=== PATIENT | female | born 1990 | race African-American/Black ===

== ENCOUNTER 2023-06-25 06:37 | Emergency (ER) | payer OTHER ==
[2023-06-25 06:48] VITALS: RESP 18; TEMP 98; BMI 28.3
[2023-06-25] MEDS ORDERED: TETRACAINE/BENZOCAINE/BUTAMBEN 20 GM SPR TP ONE (07:38)
[2023-06-25] MEDS ORDERED: TETRACAINE 0.5% OPHTH SOLN 2 ML BOTTLE ONE (08:22)
[2023-06-25] MEDS ORDERED: BENZOCAINE 20% 57 GM BOTTLE TP ONE (08:23)
[2023-06-25 09:18] VITALS: BP 110/77; PULSE 88
== END 2023-06-25 09:19 | disposition home or self-care (01) ==
LOC: JER 06:37
DX: T17.208A Unspecified foreign body in pharynx causing other injury, initial encounter (principal); R07.0 Pain in throat
CPT/HCPCS: 99282-25

== ENCOUNTER 2023-11-03 08:02 | Inpatient (IN) | payer OTHER ==
[2023-11-03] MEDS ORDERED: ELECTROLYTE-148 SOLN 1,000 ML IV SCH (08:45)
[2023-11-03] MEDS ORDERED: MISOPROSTOL 25 MCG TABLET (COMPOUNDED BY PHARMACY) PO SCH (09:00)
[2023-11-03 10:58] VITALS: BMI 32.1
[2023-11-03] MEDS: MISOPROSTOL 25 MCG TABLET (COMPOUNDED BY PHARMACY) BUC SCH ×3 (11:15→23:22)
[2023-11-03 11:24] LABS: BASO % 0.6 % (0-2.0); EOS % 0.4 % (0-4.5); HEMATOCRIT 35.7 % (32.4-45.2); HEMOGLOBIN 11.8 GM/dL (10.7-15.3); LYMPH % 16.5 % (8-40); MCH 30.5 pg (25.7-33.7); MCHC 33.1 g/dl (32.0-36.0); MEAN CELL VOLUME 92.2 fl (80-96); MEAN PLT VOLUME 9.2 fl (7.5-11.1); MONO % 9.8 % (3.8-10.2); NEUT % 72.7 % (42.8-82.8); PLATELET COUNT 225 10^3/uL (134-434); RBC 3.87 M/mm3 (3.60-5.2); RDW 13.9 % (11.6-15.6); WHITE BLOOD COUNT 7.1 K/mm3 (4.0-10.0)
[2023-11-03 11:29] LABS: INR 0.99 (0.83-1.09); PROTHROMBIN TIME (PATIENT) 11.5 SEC (9.7-13.0)
[2023-11-03 11:32] LABS: ACTIVATED PTT 26.7 SECONDS (25.2-36.5)
[2023-11-03 11:59] LABS: POTASSIUM 3.8 mmol/L (3.5-5.1)
[2023-11-03 12:02] LABS: CALCIUM 8.7 mg/dL (8.5-10.1)
[2023-11-03 12:03] LABS: BLOOD UREA NITROGEN 9.2 mg/dL (7-18)
[2023-11-03 12:06] LABS: CREATININE 0.7 mg/dL (0.55-1.3)
[2023-11-03] MEDS ORDERED: FENTANYL/BUPIVACAINE/NS/PF - PCEA - 50 ML DISP.SYRIN EP ONE (20:22)
[2023-11-03] MEDS ORDERED: OXYTOCIN 30 UNITS in 0.9% NS 30 UNIT/500 ML INFUS.BAG IVPB SCH (20:30)
[2023-11-03] MEDS ORDERED: NALOXONE HCL 0.4 MG/ML VIAL IVPUSH PRN (21:23)
[2023-11-03] MEDS ORDERED: FENTANYL/BUPIVACAINE/NS/PF - PCEA - 50 ML DISP.SYRIN EP SCH (21:30)
[2023-11-03] MEDS ORDERED: OXYTOCIN 30 UNITS in 0.9% NS 30 UNIT/500 ML INFUS.BAG IVPB ONE (22:55)
[2023-11-04] MEDS ORDERED: OXYTOCIN 20 UNITS in 0.9% NS 20 UNIT/1,000 ML INFUS.BAG IV ONE (00:23)
[2023-11-04] MEDS ORDERED: LIDOCAINE HCL 1% PRESERVATIVE FREE - 30ML VIAL ONE (00:23)
[2023-11-04] MEDS ORDERED: BENZOCAINE 28 GM HEMORRHOIDAL OINTMENT TP PRN (00:55)
[2023-11-04] MEDS ORDERED: METHYLERGONOVINE MALEATE 0.2 MG/1 ML AMP IM PRN (00:55)
[2023-11-04] MEDS ORDERED: BENZOCAINE 20% 57 GM BOTTLE TP PRN (00:55)
[2023-11-04] MEDS ORDERED: BISACODYL 10 MG SUPP.RECT RC PRN (00:55)
[2023-11-04] MEDS ORDERED: WITCH HAZEL 50% (TUCKS) 40 PAD/JAR PAD TP PRN (00:55)
[2023-11-04] MEDS ORDERED: OXYTOCIN 20 UNITS in 0.9% NS 20 UNIT/1,000 ML INFUS.BAG IV SCH (01:00)
[2023-11-04] MEDS ORDERED: ACETAMINOPHEN 325 MG TABLET (FP) ONE (03:22)
[2023-11-04] MEDS: ACETAMINOPHEN 325 MG TABLET (FP) PO PRN (03:25)
[2023-11-04] MEDS: FERROUS SO4 325 MG TABLET (FP) PO SCH ×3 (09:00→17:25)
[2023-11-04] MEDS: PRENATAL VITAMINS W/ FOLIC ACID TABLET (FP) PO SCH (09:25)
[2023-11-04] MEDS: IBUPROFEN 600 MG TABLET (FP) PO PRN ×2 (12:42→21:15)
[2023-11-05] MEDS: FERROUS SO4 325 MG TABLET (FP) PO SCH ×3 (07:07→17:56)
[2023-11-05] MEDS: ACETAMINOPHEN 325 MG TABLET (FP) PO PRN (07:07)
[2023-11-05 08:37] LABS: BASO % 0.3 % (0-2.0); HEMATOCRIT 35.4 % (32.4-45.2); HEMOGLOBIN 11.6 GM/dL (10.7-15.3); LYMPH % 19.3 % (8-40); MCH 30.7 pg (25.7-33.7); MCHC 32.9 g/dl (32.0-36.0); MEAN CELL VOLUME 93.5 fl (80-96); MEAN PLT VOLUME 9.4 fl (7.5-11.1); MONO % 9.3 % (3.8-10.2); NEUT % 70.1 % (42.8-82.8); PLATELET COUNT 229 10^3/uL (134-434); RBC 3.78 M/mm3 (3.60-5.2); WHITE BLOOD COUNT 9.1 K/mm3 (4.0-10.0)
[2023-11-05] MEDS: PRENATAL VITAMINS W/ FOLIC ACID TABLET (FP) PO SCH (09:33)
[2023-11-05 10:59] VITALS: RESP 18
[2023-11-05] MEDS: IBUPROFEN 600 MG TABLET (FP) PO PRN (12:56)
[2023-11-05] MEDS ORDERED: SENNOSIDES/DOCUSATE COMBO (SENNA PLUS) TABLET (UD) PO PRN (22:00)
[2023-11-06] MEDS: PRENATAL VITAMINS W/ FOLIC ACID TABLET (FP) PO SCH (09:49)
[2023-11-06] MEDS: FERROUS SO4 325 MG TABLET (FP) PO SCH (09:50)
[2023-11-06 11:07] VITALS: BP 104/70; PULSE 81; TEMP 98.9
== END 2023-11-06 15:40 | disposition home or self-care (01) | DRG 560 ==
LOC: JLDR 08:02 → J3W 11-04 05:52
PROVIDERS: ADMIT Obstetrics & Gynecology; ATTEND Obstetrics & Gynecology
PROC: 10E0XZZ Delivery of Products of Conception, External Approach (ICD-10-PCS; principal; 2023-11-04)
DX: O69.81X0 Labor and delivery complicated by cord around neck, without compression, not applicable or unspecified (principal); Z3A.40 40 weeks gestation of pregnancy; Z37.0 Single live birth
CPT/HCPCS: 36415; 80048; 85025; 85610; 85730; 86780; 86850; 86900; 86901

== ENCOUNTER 2024-07-12 09:42 | Emergency (ER) | payer OTHER ==
[2024-07-12 09:54] VITALS: BP 117/79; PULSE 78; RESP 18; TEMP 97.8; BMI 28.5
[2024-07-12] MEDS ORDERED: ACETAMINOPHEN 500 MG TABLET (FP) ONE (11:21)
[2024-07-12] MEDS: ACETAMINOPHEN 500 MG TABLET (FP) PO ONE (12:07)
[2024-07-12 14:55] LABS: HIV INTERPRETATION NEGATIVE (NEGATIVE)
== END 2024-07-12 13:57 | disposition home or self-care (01) ==
LOC: JER 09:42
DX: R51.9 Headache, unspecified (principal); M79.10 Myalgia, unspecified site; V89.2XXA Person injured in unspecified motor-vehicle accident, traffic, initial encounter; Y92.410 Unspecified street and highway as the place of occurrence of the external cause
CPT/HCPCS: 36415; 70450-TC; 72125-TC; 72128-TC; 84703; 86803; 87389; 99284-25